=== PATIENT | male | born 1970 | race Caucasian/White ===

== ENCOUNTER 2017-01-06 17:01 | Inpatient (IN) | payer OTHER ==
[~2017-01-06] VITALS: Ht 175.3 cm; Wt 66.0 kg
[2017-01-06 17:32] VITALS: BP 112/73; PULSE 96; RESP 16; O2SAT 100
--- NOTE | 2017-01-06 18:44 | ED.REPORT ---
HPI-Psychiatric Illness Date of Service Jan 06, 2017 ED Provider: Aurora Reid DO Pt is a 46 year old male with a history of HTN who presents to the ED complaining of need for detox from heroin for the past 3 weeks. He c/o associated suicidal thoughts without plans onset 2 weeks ago and insomnia. He denies current hallucinations and homicidal thoughts. The pt reports that he has been at [facility] for 1 week, and that he plans on getting into a Suboxone clinic once he is discharged. He denies a history of suicidal attempts , mellisa, psychosis, and reports that he has not been admitted previously for mental health issues. Nursing Notes Stated Complaint: MENTAL EVAL Chief Complaint: Psychiatric Complaint Nursing Notes Reviewed: Yes Allergies: Coded Allergies: Sulfa (Sulfonamide Antibiotics) (Verified Allergy, Mild, Mild, 01/06/17) General Time Seen by MD: 18:43 Chief Complaint Other (Detox) Hx Obtained From: Patient Arrived By: Walk-in Onset Occurred: More than a week ago... 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 Physical Exam Initial Vital Signs Vital Signs (First) Date Time Temp Pulse Resp B/P Pulse Ox O2 Delivery O2 Flow Rate FiO2 01/06/17 17:32 37.1 96 16 112/73 100 01/06/17 19:28 Room Air Initial VS: Reviewed Head / Eyes: Atraumatic, Normocephalic Neck: Supple, Full range of motion Respiratory: Breath sounds normal, Clear to auscultation, No respiratory distress Cardiovascular: Regular rate & rhythm, Heart sounds normal, Intact distal pulses Skin: Warm, Dry, No cyanosis General/Constitutional: Awake, Alert, Cooperative Neurologic: Oriented X3, Speech NL, No motor deficits, No sensory deficits Psychiatric: Not suicidal Pt has not been sleeping and would like something to help with his sleep. He has no suicidal plans or history of suicidal attempts. Will give medications and consult with a mental health social worker. Upper Extremity / MS: Neurologic intact, Vascular intact Indurated swollen, painful left bicep muscle. Interpretation & Diagnostics LEFT UPPER EXTREMITY VENOUS ULTRASOUND: CONCLUSION: Negative for DVT. Hematoma within the distal biceps muscle. Additional hypoechoic focus within the distal biceps, most likely hemorrhage with abscess felt less likely but not excluded. Transmitted to the ED at 23:02 by [address] M[address]D [address] LEFT ARM: Infection cellulitis with edema in muscle belly. No accrete abscess formation yet. Looks like fluid collection. Discussed with David Morales M.D, at 02:24 Lab Results Interpretation Result Diagram: 01/06/17 2345 01/06/17 2345 Test 01/06/17 23:45 White Blood Count 14.6th/mm3 (3.8-10.1) Red Blood Count 4.95mil/mm3 (4.40-5.80) Hemoglobin 14.1g/dL (13.8-17.2) Hematocrit 41.3% (41.0-50.0) Mean Corpuscular Volume 83.4fL (81-100) Mean Corpuscular Hemoglobin 28.5pg (27.0-35.0) Mean Corpuscular Hemoglobin Concent 34.1% (32.0-37.0) Red Cell Distribution Width 16.2% (12.3-15.4) Platelet Count 422bil/L (150-400) Neutrophils (%) (Auto) 72.8% (40-74) Lymphocytes (%) (Auto) 16.1% (14-46) Monocytes (%) (Auto) 9.6% (4-12) Eosinophils (%) (Auto) 0.9% (0-5) Basophils (%) (Auto) 0.3% (0-3) Sodium Level 138mEq/L (134-144) Potassium Level 4.1mEq/L (3.5-5.2) Chloride Level 97mEq/L (97-108) Carbon Dioxide Level 25mmol/L (18-29) Blood Urea Nitrogen 14mg/dL (6-24) Creatinine 0.75mg/dL (0.76-1.27) Estimat Glomerular Filtration Rate 119mL/min (>59) Glucose Level 102mg/dL (60-99) Lactic Acid Level 1.3mmol/L (0.4-2.0) Calcium Level 9.3mg/dL (8.5-10.1) Total Bilirubin 0.2mg/dL (0.0-1.2) Aspartate Amino Transf (AST/SGOT) 17U/L (0-50) Alanine Aminotransferase (ALT/SGPT) 18U/L (0-44) Alkaline Phosphatase 89U/L (25-150) Total Creatine Kinase 48U/L (21-232) Total Protein 7.5g/dL (6.4-8.4) Albumin 3.8g/dL (3.4-5.0) Procedures ABSCESS DRAINAGE: Pt presented with an indurated, swollen, and painful left bicep muscle. Pt provided consent to have the abscess drained. Sterile gloves were worn during the procedure and sterile practices were observed. No complications. Pt provided consent to have the abscess drained a second time. Sterile gloves were worn during the procedure and sterile practices were observed. 14 gauge was used. No complications. Re-Eval/Medical Decision Med Decision/Clinical Course This is a very pleasant 46-year-old male who came in initially for mental health evaluation. He is at [facility] and he is detoxing from heroin. He last used injection drugs I believe about 10 days ago. He states that he is not sleeping he is feeling very anxious due to his withdrawal and at times is getting some suicidal thoughts. This is what prompted the ED visit. He was not actually suicidal he does want some help him relax. My mental health social worker evaluated him and he concurred. We gave him some Ativan and when he first presented his left bicep was a little bit erythematous but certainly not indurated. Over the next couple of hours and became indurated started give him some pain. He does shoot up in a serious we perform an ultrasound looking for an abscess or DVT. There appeared to be possibly an abscess but definitely some subcutaneous edema. We went ahead and performed a CT scan that shows evidence of edema and a little swelling in the muscle consistent with myositis. There is no discrete drainable fluid collection however seen on CT scan. Taking account that Mr. Blunt has a leukocytosis and a deep space infection with myositis and cellulitis I will admit him to the hospital. He has no signs of gangrene at this time or necrotizing fasciitis. He certainly has an infection that warrants broad-spectrum antibiotics and possible surgery and infectious disease consultation. Of note after given a dose of Ativan all his suicidal ideations resolved. He is able to sleep for several hours. At 2:28 AM I repeated neurologic exam. Is awake or oriented 4. He has no suicidal ideations. He has no homicidal ideations. He would like to be admitted medically. He is feeling much better. His recent remote memory are intact. His affect and judgment seem to be intact as well. Source of Hx: Old records Re-Evaluation/Progress #1: Time of Eval: 22:01 )( Re-Eval Psychiatric: No danger to self, No danger to others Re-Evaluation/Progress Note: Pt rechecked. Pt reported indurated swollen left bicep muscle, which was drained with the pt's consent. All questions were answered. Re-Evaluation/Progress #2: Time of Eval: 02:29 )( Re-Eval Psychiatric: No danger to self, No danger to others Re-Evaluation/Progress Note: Pt rechecked. Informed pt of plan for admission. Pt understands and agrees with plan for admission. All questions were answered. Consultation #1: Referral / Consult Name: David Morales MD Call Returned at: 02:23 Demand Equipment Repairer: Agrees with eval, Agrees with plan Note: Discussed CT findings with Radiologist. He does not think it is an abscess. Consultation #2: Referral / Consult Name: Nguyễn Rivers MD Consulted With: Hospitalist Call Returned at: 02:30 Demand Equipment Repairer: Will see patient, Agrees with eval, Agrees with plan, Accepts admit Counseled Regarding: Diagnosis, Lab results, Need for admission Discharge & Departure Impression: Primary Impression: Myositis Myositis type: infective Myositis location: upper extremity Laterality: left Qualified Code: M60.001 - Infective myositis, unspecified left arm Additional Impression: Cellulitis Site of cellulitis: extremity Site of cellulitis of extremity: upper extremity Laterality: left Qualified Code: L03.114 - Cellulitis of left upper limb Disposition: ADMITTED TO HOSPITAL Discharge Condition All VS Reviewed: Yes Condition: Stable Referrals: [facility] Scribe Attestation Portions of this note were transcribed by Raquel Duncan. I, Dr. Simon personally performed the history, physical exam and medical decision-making; I reviewed and confirmed the accuracy of the information in the transcribed note. Signed by: Huber Lemus, 01/06/17 and 19:50. copies to: [facility] Franklin Simon DO Jan 06, 2017 18:44 Raquel Gomez Jan 06, 2017 18:49
[2017-01-06 19:28] VITALS: BP 105/59; PULSE 85; RESP 20; O2SAT 96
[2017-01-06] MEDS ORDERED: LORazepam 1 mg Tablet PO ONE (20:25)
[2017-01-06 23:00] VITALS: BP 110/64; PULSE 86; RESP 20; O2SAT 98
[2017-01-07] VITALS (8 sets, daily range): BP systolic 109–159; BP diastolic 63–92; PULSE 67–89; RESP 16–18; O2SAT 96–100
[2017-01-07 00:03] LABS: BASOPHILS % (AUTO) 0.3 % (0-3); EOSINOPHILS % (AUTO) 0.9 % (0-5); MONOCYTES % (AUTO) 9.6 % (4-12); Mean Corpuscular Hemoglobin 28.5 pg (27.0-35.0); Mean Corpuscular Volume 83.4 fL (81-100); NEUTROPHILS % (AUTO) 72.8 % (40-74); Platelet Count 422 bil/L (150-400)
[2017-01-07] MEDS ORDERED: HYDROmorphone 0.5 mg/0.5 mL iSecure Syringe IVPUSH PRN (01:35)
[2017-01-07] MEDS ORDERED: Piperacillin-Tazo 3.375 Gm Inj 3.375 GM in Dextrose 5% Minibag Plus 50 ML IV ONE (01:35)
[2017-01-07] MEDS ORDERED: 0.9% Sodium Chloride 1,000 ML IV ONE (01:35)
[2017-01-07] MEDS ORDERED: Ondansetron 2 mg/mL 2 mL Inj IVPUSH PRN ×2 (03:40→04:20)
[2017-01-07] MEDS ORDERED: Alum-Mag Hydrox-Simeth 30 mL Suspension PO PRN ×2 (03:40→04:20)
[2017-01-07] MEDS ORDERED: Polyethylene Glycol (PEG) 17 Gm Powder PO PRN (04:20)
--- NOTE | 2017-01-07 04:29 | PCM.HPMED ---
Subjective Date of Service Jan 07, 2017 Primary Provider: Admitting Physician: Nguyễn Rivers MD Primary Care Physician: Other,Physician Attending Physician: Nguyễn Rivers MD Chief Complaint: nausea, vomiting. History of Present Illness: 46 year old male with a history of HTN presented to the ED requesting for detox from heroin for the past 3 weeks. He also c/o associated suicidal thoughts without plans onset 2 weeks ago and insomnia along with nausea and vomiting. He denies blood in vomiting. He denies current hallucinations and homicidal thoughts. He also states that he has been at [facility] for 1 week, and that he plans on getting into a Suboxone clinic once he is discharged. He denies a history of suicidal attempts, mellisa, psychosis, and reports that he has not been admitted previously for mental health issues. In ED, he was found to have left upper extremity swelling that was consistent with cellulitis. So he is admitted for intravenous antibiotics. Review of Systems: Positive as per noted in HPI, otherwise a complete 14-point review of system is negative. Allergies Coded Allergies: Sulfa (Sulfonamide Antibiotics) (Verified Allergy, Mild, Mild, 01/06/17) [facility] Social History Hx Alcohol Use: No Hx Substance Use: Yes (heroin use) Smoking Status: Current Every Day Smoker Exam Vital Signs Vital Sign - Last Date Time Temp Pulse Resp B/P Pulse Ox O2 Delivery O2 Flow Rate FiO2 01/07/17 03:59 36.8 88 18 120/68 98 Room Air Intake and Output 01/06/17 01/06/17 01/07/17 Cumulative From/Thru 15:00 23:00 07:00 01/06/17 17:32 - 01/07/17 02:56 Intake Total 1550 ml 1550 ml Balance 1550 ml 1550 ml Intake IV Total 1550 ml 1550 ml Exam General/Constitutional: Awake, Alert, Cooperative Head / Eyes: Atraumatic, Normocephalic Neck: Supple, Full range of motion Respiratory: Breath sounds normal, Clear to auscultation, No respiratory distress Cardiovascular: Regular rate & rhythm, Heart sounds normal, Intact distal pulses Upper Extremity / MS: Neurologic intact, Vascular intact Indurated swollen, painful left bicep muscle. Neurologic: Oriented X3, Speech NL, No motor deficits, No sensory deficits Psychiatric: Not suicidal Lab and Diagnostics Result Diagram: 01/06/17 5510 01/06/17 2345 X-Rays, CTs and MRIs LEFT UPPER EXTREMITY VENOUS ULTRASOUND: CONCLUSION: Negative for DVT. Hematoma within the distal biceps muscle. Additional hypoechoic focus within the distal biceps, most likely hemorrhage with abscess felt less likely but not excluded. Transmitted to the ED at 23:02 by [address] M[address]D [address] LEFT ARM: Infection cellulitis with edema in muscle belly. No accrete abscess formation yet. Looks like fluid collection. Assessment & Plan 46 year old male with h/o intravenous drug abuse found to have left upper extremity swelling consistent with cellulitis. Cellulitis - leukocytosis. - Will start on broad spectrum antibiotics as he is actively using intravenous drugs - Will start on vancomycin and zosyn - US negative for DVT. - CT is consistent with cellulitis - Blood cultures pending Heroin abuse - c/o insomnia and also very anxious. - received ativan. Feeling much better now. Diet: General DVT ppx: Heparin Pain Evaluation: Adequate Pain Control GI Prophylaxis: Proton Pump Inhibitor VTE Prophylaxis: Sub-Q Heparin (Unfractionated) Resuscitation Status: CPR: Attempt Resuscitation Nguyễn Rivers MD Jan 07, 2017 04:29
[2017-01-07 05:47] LABS: Mean Corpuscular Hemoglobin 28.2 pg (27.0-35.0); Mean Corpuscular Volume 84.2 fL (81-100)
--- NOTE | 2017-01-07 06:26 | NUR ---
admit pt arrived to [facility] room 1007 at 0400. he is alert and oriented. VSS and afebrile. he was able to ambulate from the gurney to the bed with no assistance. he complains of pain in his R arm where it was reported it took multiple attempts to get an IV in. pt given tylenol for his pain, which has been effective he has been sleeping. admit and med rec complete. pt has been oriented to room, call light and bed controls. care continues.
--- NOTE | 2017-01-07 06:42 | PCM.CONPHA ---
Subjective Date of Service: Jan 07, 2017 Requesting Provider: Nguyễn Rivers MD nausea, vomiting. History of Present Illness A/ - 46 y/o IVDU male required Vancomycin to empirically treat cellulitis - Afebrile, WBC: 14.6, blood cultures pending - In ED, patient received loading dose Vancomycin 1500mg @0300, Zosyn also initiated and to be continued - Wt: 66.1 kg, ht: 175 cm, BMI: 21.5 kg/m2, SCr: 0.75 mg/dL, estimated clearance (based on ABW) ~ 115 ml/min, Vd~46L, t1/2~7 hrs P/ - Give vancomycin 750mg iv q8h. Trough level ordered before 4th dose @0330 . This regimen would produce a trough of 15. Pharmacy will continue to follow and make necessary adjustment Thank you for consulting clinical pharmacy in the care of this patient Torin Fraga Reason for Pharmacy Consult: Vancomycin Dosing Objective Vital Signs Glo Fraga Jan 07, 2017 06:42 01/07/17 03:59 36.8 88 18 120/68 98 Room Air 01/07/17 03:58 36.8 88 18 116/70 98 Room Air 01/07/17 03:00 36.9 88 18 112/68 99 Room Air 01/06/17 23:00 36.7 86 20 110/64 98 Room Air 01/06/17 19:28 36.6 85 20 105/59 96 Room Air 01/06/17 17:32 37.1 96 16 112/73 100 Weight (Kilograms): 66.100 Height (Feet): 5 Height (Inches): 9.00 Test 01/06/17 23:45 01/07/17 05:00 Neutrophils (%) (Auto) 72.8% (40-74) Lymphocytes (%) (Auto) 16.1% (14-46) Monocytes (%) (Auto) 9.6% (4-12) Eosinophils (%) (Auto) 0.9% (0-5) Basophils (%) (Auto) 0.3% (0-3) Lactic Acid Level 1.3mmol/L (0.4-2.0) Total Creatine Kinase 48U/L (21-232) White Blood Count 13.4th/mm3 (3.8-10.1) Red Blood Count 4.44mil/mm3 (4.40-5.80) Hemoglobin 12.5g/dL (13.8-17.2) Hematocrit 37.4% (41.0-50.0) Mean Corpuscular Volume 84.2fL (81-100) Mean Corpuscular Hemoglobin 28.2pg (27.0-35.0) Mean Corpuscular Hemoglobin Concent 33.4% (32.0-37.0) Red Cell Distribution Width 16.1% (12.3-15.4) Platelet Count 324bil/L (150-400) Glo Fraga Jan 07, 2017 06:42
[2017-01-07] MEDS ORDERED: Piperacillin-Tazo 3.375 Gm Inj 3.375 GM in Dextrose 5% Minibag Plus 50 ML IV SCH ×4 (08:30)
[2017-01-07] MEDS ORDERED: Vancomycin Inj 500 MG in Dextrose 5% 100 ML IV SCH (08:30)
[2017-01-07] MEDS: Vancomycin Dose per Pharmacist XX SCH (08:30)
--- NOTE | 2017-01-07 08:47 | DRSVH ---
PROCEDURE: US VENOUS ARM DUPLEX UNILATERAL, LEFT INDICATIONS: left bicep pain and swelling TECHNIQUE: Real-time imaging, as well as color and pulse Doppler interrogation, was performed of the left upper extremity deep veins from the inferior neck to the antecubital fossa. COMPARISON: [facility], CT, CT UPPER EXTREMITY LT W CON, 01/07/2017, 1:56. FINDINGS: The internal jugular vein, visualized portions of the subclavian vein, axillary, and brach ial veins are free of intraluminal thrombus. Where physically possible, the veins are normally compr essible. Color and pulse Doppler demonstrate normal intraluminal flow, with expected phasicity and p ulsatility. Additional scanning of the cephalic and basilic veins of the superficial system demonstr ate normal compressibility, without thrombus. Edema present at the level of the biceps and there is a complex, heterogeneous focus present measuring roughly 3.7 x 1.0 x 1.5 cm. IMPRESSION: 1. No left upper extremity venous thrombus identified. 2. Complex, heterogeneous mass within the biceps which could represent hematoma but inflammatory or n eoplastic mass cannot be excluded and clinical correlation is recommended. No drainable fluid collec tion is seen. Dictated by: Mack Terrazas RRA Interpreted: Chayo Leary MD on 01/07/2017 at 8:38 Transcribed by: SAL on 01/07/2017 at 8:46 Approved by: Chayo Leary MD, PhD on 01/07/2017 at 9:46
[2017-01-07] MEDS: Heparin 5,000 Unit/mL Inj SUBQ SCH ×2 (09:14→17:14)
--- NOTE | 2017-01-07 10:15 | DRSVH ---
PROCEDURE: CT UPPER EXTREMITY LT W CON INDICATIONS: left bicep expanding mass and swelling. IV drug abuse. TECHNIQUE: After the administration of intravenous contrast, 3 mm axial sections acquired of the left upper arm, with coronal and sagittal reformats. For radiation dose reduction, the following was used: automat ed exposure control, adjustment of mA and/or kV according to patient size. COMPARISON: None. FINDINGS: Image quality: Excellent. Bones: No fracture or dislocation. No lytic or blastic lesions identified. No periosteal reaction elenita ntified. Soft tissues: There is a 2.9 x 2.0 x 2.8 cm poorly visualized hypoattenuating lesion in the left cherie ps musculature. No definite peripheral enhancement associated with the left bicep lesion. Left biceps region may represent inflammatory phlegmon/early abscess, or lesion is difficult to definitively umu racterize due to beam hardening artifact related to close apposition the patient's body. The left bic eps muscle appears diffusely enlarged and edematous. Inflammatory changes noted in the subcutaneous f at of the anterior medial left upper arm. IMPRESSION: Left upper arm edema likely related to infectious cellulitis/myositis given history of IV drug abuse. Small hypodensity in the left biceps muscle suspicious for inflammatory phlegmon/develop ing abscess. Dictated by: Chayo Leary MD, PhD on 01/07/2017 at 10:08 Approved by: Chayo Leary MD, PhD on 01/07/2017 at 10:13
[2017-01-07] MEDS ORDERED: cefTRIAXone Inj 2,000 MG in Dextrose 5% Minibag Plus 50 ML IV SCH (11:00)
[2017-01-07] MEDS: Vancomycin Inj 750 MG in 0.9% Sodium Chloride 250 ML IV SCH ×3 (12:00→20:17)
--- NOTE | 2017-01-07 14:39 | NUR ---
cellulitis unchanged, outlined area of erythema with marker. pt has been sleeping most of day, arouses easily, states when asked, that he does feel like he is still withdrawing some but not as much as he has been in the last week or so.
--- NOTE | 2017-01-07 15:51 | NUR ---
Social Work- Brief Note Data: EMR reviewed. Pt is a 46 year old male admitted 01/07/17 for cellulitis, myosistis per H&P. Pt's insurance is [employer]. Pt's PCP is listed as Other Physician. Per ER notes, pt comes from [facility] and pt presented to the ED due to reports of suicidal ideations without specific plan and command auditory hallucinations. Pt has no previous inpatient or outpatient psychiatric treatment nor does he have any previous suicide attempts. Pt reports fleeting suicidal thoughts in the ED secondary to his lack of sleep. 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 No BAL or UDS are obtained as pt came directly from [facility]. Diagnosis: F32.9 Unspecified depressive disorder SW met with pt at bedside regarding discharge plan, SW role explained. Pt alert and oriented x3. Pt reports to [employer] that he is considering leaving [facility] and moving to [place] to live with his mother and stepfather. T/C to Twyla Mendosa at [facility] [phone] regarding pt's return. Twyla is agreeable to pt returning and continuing treatment, [facility] staff would provide transportation at discharge. If pt returns to [facility] to continue treatment, Twyla requested that MD evaluate pt for a mood stabilizer to prevent similar mental health incidences from occurring and requiring admission. SW to inform MD of this. To return to [facility], pt would not be allowed to discharge on narcotics or any IV medications, including abx. If pt did not want to continue treatment, per Twyla, pt would have to return to obtain his belongings and then would be able to decide to check himself out of treatment. No transportation will be provided from [facility] to [place]. Pt reports that his mother Kimberley would be able to pick him up and transport him down to [place] and he would get connected with a suboxone clinic in [place]. MARIANNA stated that it is a big decision to decide to leave treatment and pt should discuss with his mother before assuming that she will assist in this. Pt agreeable. Pt is not currently endorsing any SI or HI. Pt denies any auditory hallucinations at this time. Pt pleasant during conversation. Pt is agreeable to MD discussing mood stabilizing medication. Assessment: Pt who is currently in treatment at [facility] Plan: SW to speak with MD about considering placing pt on mood stabilizer prior to discharge back to [facility]. Pt to discharge back to [facility] with [facility] to transport. Pt can then decide to check himself out of treatment and obtain his belongings at that time. SW will continue to follow. SLOANE Landa
[2017-01-07] MEDS: oxyCODONE-Acetamin 5-325 mg Tablet PO PRN (17:13)
--- NOTE | 2017-01-07 17:31 | CONS ---
[address] [address] CONSULTATION REPORT PATIENT: SHAYY MOORE : 1970 MR#: [id number] ADMIT: 01/07/2017 JOB ID: [id number] DATE OF SERVICE: 01/07/2017 INFECTIOUS DISEASE CONSULTATION: I thank Dr. Rivers for this timely consult. REASON FOR CONSULTATION: Left biceps infectious myositis. HISTORY OF PRESENT ILLNESS: The patient is a 46-year-old intramuscular narcotic user. He reports he last injected heroin into his left biceps area about three weeks ago. He presented to the ER yesterday complaining primarily of the pain in his left biceps which he said began about four days ago, or 17 days or so after his last injection. This was it associated with redness and tenderness along the biceps muscle, extending down towards the elbow. He denied any associated significant fevers, chills, sweats, cough, shortness of breath, nausea, or vomiting. He reports that he was having some suicidal ideation as well and he was primarily feeling suicidal about his continuing problems with injection drug use. PAST MEDICAL HISTORY: 1. History of severe right thigh abscess secondary to IM drug use last year. 2. Left upper extremity myositis secondary to injection drug use this year. 3. Hypertension. 4. Recent suicidal ideation. SOCIAL HISTORY: The patient does not drink alcohol. He is an everyday cigarette smoker and injects heroin by the IM route and in the past has injected heroin by the IV route. FAMILY HISTORY: Negative for tuberculosis in first-degree relatives. REVIEW OF SYSTEMS: Was limited. The patient states he has no significant headache, sore throat, cough, chest pain, shortness of breath, nausea, vomiting, diarrhea, or dysuria. PHYSICAL EXAMINATION: Reveals an afebrile gentleman, temperature 36.4, pulse 78, respiratory rate 16, blood pressure 109/73, saturating 99% on room air, and he looks to be in no acute distress. He does look, however, like he has a depressed mood and rather flat affect. He has some scattered skin lesions on his face, none of which appear especially infected. No temporal wasting. No head trauma. Mental status is clear, except for the diminished mood. Eyes: Without conjunctivitis or conjunctival hemorrhage. Oral cavity: No thrush or hairy leukoplakia. Neck is supple. Lungs are clear. Cardiac tones regular rate and rhythm. No murmurs, rubs, or gallops are appreciated. The abdomen is soft and nontender, without organomegaly. There is no Mcfarlane catheter and no suprapubic tenderness. Extremities are notable for a scar in the right lateral upper thigh at the site of his prior abscess, otherwise lower extremities are negative. No rash, edema, or synovitis. The left upper extremity is notable for about a 10 cm segment of his distal upper arm, which encompasses most of the biceps. This area is bulging, erythematous, and mildly tender, but without bullae. The patient has an almost full range of motion of his left upper extremity but cannot completely straighten the arm secondary to some pain in the distal biceps region. Neurologically the patient is intact. LABORATORIES: Include white count of 14,000 with no left shift. Platelets 324. Creatinine 0.63. LFTs normal. Procalcitonin 0.04. MRSA screen of the nares is pending. Blood cultures are pending and negative so far. IMAGING: Includes a CT scan of the upper arm that shows left upper extremity arm edema secondary to infectious cellulitis and myositis. There is a small hypodensity in the left biceps consistent with developing abscess. An ultrasound of that arm showed no clot. There was no drainable abscess seen on the ultrasound. IMPRESSION: This is a young man with a history of intramuscular heroin use who suffered last year a serious right thigh infection treated at an outside hospital secondary to IM injections there. He now has a new significant left upper extremity developing abscess and/or myositis. He is nontoxic and does not appear to have necrotizing fasciitis or myositis at this time, and likewise does not appear to have endocarditis or impending septic shock. RECOMMENDATIONS: 1. I agree with the blood cultures and nasal MRSA swab. 2. Will check HIV and hepatitis C. 3. We will add a CPK to his current labs. 4. Should his arm worsen, I think we would need to proceed with an MRI scan and also an orthopedics or general surgery consult for drainage. 5. ASO titer will be checked and added to today's labs. 6. We will continue to closely follow this patient with you over the next day or so. 7. I agree with the current antibiotics which include ceftriaxone and vancomycin while we await additional cultures. Thank you very much.
[2017-01-08 00:56] VITALS: BP 120/78; PULSE 92; RESP 20; O2SAT 98
--- NOTE | 2017-01-08 00:58 | NUR ---
IV/ Vanco At beginning of shift patient did not have an IV access. Per report, nurse states that IV site keeps infiltrating with vanco administration. Patient is a very difficult IV start, and ultra sound has been needed. IV therapy contacted and placed new IV in the right hand around 190. At 1999, IV vanco was to be administered and IV line had already gone bad and was occluded. Night hospitalist notified, and informed of situation. He ordered for IV vanco not to be administered this evening due to inability to maintain IV access, and to reevaluate in the morning. TO order written, and pharmacy also notified of this. IV in right hand DC'd. Will share this with am nurse. Will continue to monitor, and continue Q1 hour checks. Addendum: 01/08/17 at 0125 by JARRETT GARCIA RN Pharmacist states that they will contact hospitalist to see if PO abx is appropriate for this evening. No new orders at this time.
[2017-01-08] MEDS: Heparin 5,000 Unit/mL Inj SUBQ SCH ×3 (01:08→17:51)
[2017-01-08] MEDS: oxyCODONE-Acetamin 5-325 mg Tablet PO PRN ×3 (01:12→17:58)
[2017-01-08] MEDS ORDERED: Vancomycin Serum Trough XX ONE (03:30)
[2017-01-08] MEDS: Vancomycin Inj 750 MG in 0.9% Sodium Chloride 250 ML IV SCH (04:00)
[2017-01-08 05:33] LABS: BASOPHILS % (AUTO) 0.5 % (0-3); EOSINOPHILS % (AUTO) 1.6 % (0-5); MONOCYTES % (AUTO) 8.5 % (4-12); Mean Corpuscular Hemoglobin 28.5 pg (27.0-35.0); Mean Corpuscular Volume 84.1 fL (81-100); NEUTROPHILS % (AUTO) 69.8 % (40-74); Platelet Count 342 bil/L (150-400)
[2017-01-08 05:54] LABS: Magnesium 2.1 mg/dL (1.6-2.6); Phosphorus 3.8 mg/dL (2.5-4.9)
[2017-01-08 06:03] VITALS: BP 127/79; PULSE 79; RESP 16; O2SAT 99
[2017-01-08] MEDS: Vancomycin Dose per Pharmacist XX SCH (08:30)
[2017-01-08 09:00] VITALS: BP 135/69; PULSE 91; RESP 18; O2SAT 98
[2017-01-08] MEDS ORDERED: Vancomycin Inj 1,500 MG in 0.9% Sodium Chloride 500 ML IV ONE (09:30)
--- NOTE | 2017-01-08 10:29 | PCM.PNMED ---
Subjective Date of Service Jan 08, 2017 Subjective pt remained afebrile, no s/s of opioid withdrawal less pain, ID consulted, Exam Vital Signs Vital Sign - Last Date Time Temp Pulse Resp B/P Pulse Ox O2 Delivery O2 Flow Rate FiO2 01/08/17 09:00 36.9 91 18 135/69 98 Room Air Intake and Output 01/07/17 01/07/17 01/08/17 Cumulative From/Thru 15:00 23:00 07:00 01/06/17 17:32 - 01/08/17 06:54 Intake Total 3075 ml 436 ml 5061 ml Output Total 2250 ml 1900 ml 4150 ml Balance 825 ml -1464 ml 911 ml Intake Oral 1220 ml 436 ml 1656 ml IV Total 1855 ml 3405 ml Output Urine Total 2250 ml 1900 ml 4150 ml # Bowel Movements 0 0 Exam NAD, comfortably laying down on the bed no JVD, MMM, no LAD RRR, nl s1, s2 no mrg CTAB, no w,c S,ND,NT,normoactive BS+ warm, no edema, pulses 2/2 Left biceps swollen, hard, tender, mild erythema, no fluctuance IVs and Medications Medications Reviewed: Medications were reviewed in detail Lab and Diagnostics Result Diagram: 01/08/17 0504 01/08/17 0504 X-Rays, CTs and MRIs LEFT UPPER EXTREMITY VENOUS ULTRASOUND: CONCLUSION: Negative for DVT. Hematoma within the distal biceps muscle. Additional hypoechoic focus within the distal biceps, most likely hemorrhage with abscess felt less likely but not excluded. Transmitted to the ED at 23:02 by David Morales M.D CT LEFT ARM: Infection cellulitis with edema in muscle belly. No accrete abscess formation yet. Looks like fluid collection. Assessment & Plan 46 year old male with h/o intravenous drug abuse found to have left upper extremity swelling consistent with cellulitis. acute, active cellultis/myositis on Left upper arm, in the setting of IV/IM heroin use, POA, CT/US showed no fluid but inflammatory phlegmon/developing abscess. -started on vancomycin and zosyn, currently vancomycin and Rocephin, appreciate ID input -trends fever curve, wbc, PCT -pain control with tramadol 100 tid starting today, percocet prn, chronic, stable, Heroin abuse, no signs of withdrawals, will try to avoid opioid, ordered CDI assessment Diet: General DVT ppx: Heparin dispo: likely through the weekends ADDENDUM> was consulted for possible surgical intervention. Please follow up tomorrow, keep NPO after MN in case. GI Prophylaxis: Proton Pump Inhibitor VTE Prophylaxis: Sub-Q Heparin (Unfractionated) VTE Mechanical Devices: Intermittant Pneumatic CD Resuscitation Status: CPR: Attempt Resuscitation Time spent 35min Michelle Paul MD Jan 08, 2017 10:29
[2017-01-08 14:48] VITALS: BP 100/60; PULSE 96; RESP 16; O2SAT 99
--- NOTE | 2017-01-08 15:19 | PROG NOTE ---
[address] [address] PROGRESS NOTE PATIENT: SHAYY MOORE : 1970 MR#: [id number] ADMIT: 01/07/2017 JOB ID: [id number] INFECTIOUS DISEASE FOLLOWUP: DATE: 01/08/2017 REASON FOR FOLLOWUP: Left biceps area abscess secondary to injection drug use. INTERVAL HISTORY: The patient has had no fevers, chills, or sweats overnight. No sore throat or chest pain. No nausea, vomiting, diarrhea. He has noticed however that if anything the range of motion of his left arm is decreased as he can no longer get it beyond about 100 degrees in extension and he reports increasing swelling and perhaps some increased pain even in the region. PHYSICAL EXAMINATION: Reveals an afebrile gentleman, temperature 36.9, pulse 96, respiratory rate 16, blood pressure 100/60, saturating 97% on room air. He is in no distress whatsoever. No skin rashes noted. Oral cavity benign. Lungs clear. Cardiac tones without murmur. Abdomen benign. The left biceps area though was increased in size. It is more erythematous, more swollen and slightly more tender. His range of motion is much worse in terms of extending his arm at the elbow, as he really cannot get up much beyond the 90 degree angle in terms of straightening out his left arm. No drainage or bullae are noted. LABORATORIES: Include white count 12,700, normal diff, creatinine 0.65. Serologies are pending. MRSA screen of the nare is positive. Blood cultures negative. IMAGING: No new imaging is noted beyond yesterday's CT scan which showed possible myositis. IMPRESSION: I think the patient's arm is worsening in spite of vancomycin and ceftriaxone. We have a clue as to the etiology in that his nose has MRSA, but certainly does not prove that is what is going on in his arm as this could be polymicrobial from injection. RECOMMENDATIONS: 1. Will switch the antibiotics now from vanc which is being given every 8 hours through a peripheral IV which is very difficult, to daptomycin and ertapenem for broader coverage. 2. Mupirocin will be added to the nares. 3. I would consult either General Surgery or Orthopedics to see whether additional imaging or even just a drainage of that arm is indicated at this point.
[2017-01-08] MEDS: Ertapenem Inj 1,000 MG in 0.9% Sodium Chloride 50 ML IV SCH (16:33)
[2017-01-08] MEDS ORDERED: Vancomycin Inj 750 MG in 0.9% Sodium Chloride 250 ML IV SCH (17:00)
[2017-01-08] MEDS: DAPTOmycin Inj 400 MG in 0.9% Sodium Chloride 50 ML IV SCH (17:49)
--- NOTE | 2017-01-08 19:17 | NUR ---
IV access/Pain IV access placed by IV therapy in right hand with 22gauge. Vancomycin restarted and Pharmacy updated SEP. Pt pain 4/10 in left arm. Pt administered PRN Percocet with relief. Pt slept majority of shift, using call light appropriately as needed.
[2017-01-08 20:27] VITALS: BP 120/76; PULSE 90; RESP 18; O2SAT 98
[2017-01-08] MEDS: Mupirocin 2% 22 Gm Ointment NASAL SCH (21:35)
[2017-01-09] VITALS (10 sets, daily range): BP systolic 107–131; BP diastolic 65–88; PULSE 70–89; RESP 10–21; O2SAT 96–100
[2017-01-09] MEDS: Heparin 5,000 Unit/mL Inj SUBQ SCH ×4 (00:20→23:45)
--- NOTE | 2017-01-09 01:50 | NUR ---
Activity On initial assessment, patient rated pain 6/10 on pain scale. Tramadol 100 mg PO administered. Antibiotic cream applied to left bicep area. Patient had no questions . VSS. Call light within reach. Care continues
--- NOTE | 2017-01-09 05:38 | CONS ---
[address] [address] CONSULTATION REPORT PATIENT: SHAYY MOORE : 1970 MR#: [id number] ADMIT: 01/07/2017 JOB ID: [id number] DATE OF SERVICE: 01/08/2017 CHIEF COMPLAINT: A 46-year-old male with possible left arm abscess. Seen in consultation at the request of Michelle Paul MD. HISTORY OF PRESENT ILLNESS: The patient is a 46-year-old gentleman with a problem with IV heroin abuse. He reports injecting heroin into his left biceps area about three weeks ago. He presented to the emergency department on January 06, 2017, with pain of the left arm, which began four days prior. Had some redness and tenderness extending towards the elbow. He has not had any fevers, chills. OTHER MEDICAL PROBLEMS: Hypertension. PRIOR OPERATIONS: 1. Right thigh abscess. 2. Right arm abscess. SOCIAL HISTORY: He does smoke, and he does inject heroin. He does not drink alcohol. REVIEW OF SYSTEMS: A 10-point review of systems negative, other than the pertinent positives noted in the history of present illness and other medical problems. INVESTIGATIONS: White blood cell count 12.7, down from 14.6; hemoglobin 12.9, platelet count 342. Creatinine 0.65, glucose 102. Liver function studies normal. Venous duplex, January 06, 2017, showed no evidence of venous thrombosis. Complex heterogenous focus present, measuring approximately 3.7 x 1.0 x 1.[address], on January 07, 2017, showed a 2.9 x 2.0 x 2.8 cm, poorly visualized hypoattenuating lesion in the left biceps musculature, suggestive of a phlegmon or abscess, and significant edema surrounding it. PHYSICAL EXAMINATION: A 46-year-old male in mild distress. BMI 21.5. Temperature 37.2, pulse 90, blood pressure 120/76, saturating 98% on room air. Eyes: Normal pupils, conjunctivae. Ears, nose, and throat: Normal in external appearance. Respiratory: Normal effort, clear to auscultation. Cardiovascular: Regular rate and rhythm. Gastrointestinal: Soft. Skin: Left arm, anterior aspect, with erythema, induration, and some suggestion of fluctuance to the inferior aspect. Erythema extent was marked, and it does not seem to be extending. He has palpable distal pulses. Neurologic: No gross deficits. ASSESSMENT AND PLAN: Evolving left arm abscess. He is not on an empty stomach right now, so we are going to continue his antibiotics, and make him n.p.o. at night for Dr. Gil to plan incision and drainage in the operating room on Wednesday. Again discussed the plan with the patient, and he is comfortable with that.
[2017-01-09 06:10] LABS: Hepatitis A Antibody IgM Negative (Negative); Hepatitis B Core Antibody IgM Negative (Negative)
[2017-01-09 06:40] LABS: BASOPHILS % (AUTO) 0.4 % (0-3); MONOCYTES % (AUTO) 8.5 % (4-12); Mean Corpuscular Hemoglobin 28.3 pg (27.0-35.0); Mean Corpuscular Volume 84.4 fL (81-100); NEUTROPHILS % (AUTO) 75.2 % (40-74); Platelet Count 335 bil/L (150-400)
[2017-01-09 07:15] LABS: Phosphorus 4.1 mg/dL (2.5-4.9)
[2017-01-09] MEDS: oxyCODONE-Acetamin 5-325 mg Tablet PO PRN ×3 (08:24→23:46)
[2017-01-09] MEDS ORDERED: Vancomycin Serum Trough XX ONE (08:30)
--- NOTE | 2017-01-09 09:39 | PCM.HPANE ---
Patient Data Date of Service: Jan 09, 2017 Surgeon Admitting Provider:Michelle Paul MD Attending Provider:Michelle Paul MD Primary Care Physician:Other,Physician Other Provider:Sylvester Miller Reason for Visit Cellulitis, Myosistis Ht/WT & BMI Height (Centimeters): 175 Weight (Kilograms): 66 Body Mass Index 21.58 Allergies Coded Allergies: Sulfa (Sulfonamide Antibiotics) (Verified Allergy, Mild, Mild, 01/06/17) Past Anesthesia History Anesthesia History: Denies:: Abnormal Airway, Anesthesia Reactions Diabetes History Hx Diabetes?: No MRSA MRSA: Yes Medications Hypertension Medication: No Home Meds Incl Beta Tammy: No No Active Prescriptions or Reported Meds History History of ENT Problems?: No HEENT History: Denies:: Abnormal Airway TMJ Denture Type: Full- Upper Full- Lower Teeth Condition: No Teeth Hx of Heart Problems?: Yes Cardiovascular History: Positive for:: Hypertension Denies:: Congestive Heart Failure Hx of Respiratory Problem?: No Respiratory History: Denies:: Tuberculosis Hx Neurologic Problems?: No Hx of GI Problems?: No Hx of Problems?: No Male Hx: Denies:: Prostate Problems Scrotal Mass Testicular Surgery Hx Musculoskeletal Problems?: No Musculoskeletal History: Denies:: Back Injury Joint Replacement Musculoskeletal Trauma Hx of Psycho/Social Problems?: Yes Psycho Social History: Positive for:: Anxiety Hx Depression Denies:: Bipolar Disorder Suicide Attempt Hx Surgeries?: Yes (knee surgery) Hx Any Other Health Problems?: Yes Other History: Positive for:: Hospitalization (MRSA in thigh) History Blood Transfusions: Positive for:: Accept Blood Products? Denies:: Blood Transfuse Reaction Blood Transfusions Hx Diabetes: No Hx Alcohol Use: YesAlcoholic Drinks Per Day: quit 10 years agoHx Substance Use : Yes (heroine last use 2 weeks ago) Smoking Status: Current Every Day Smoker Have You Smoked inLast 12 mo: NoApprox How Many Cigarettes/day: 10 Stop/Bang Treated for Sleep Apnea?: No Do You Have a CPAP Machine?: No S-Snoring: Do You Snore Loudly: No T-Tired: feel tired, fatigued: No O-Obsered: Observed not breath: No P-Blood Pressure: treated: Yes B- Body Mass Index > 35 kg/m2: No N- Neck Large Circumference: No G- Gender Male: Yes SAVAGE Total Score: 2 SAVAGE Risk Assessment: Low Risk, <3 Yes Risk Assessment Category Category 1A: Patient has history of documented sleep apnea, and HAS NOT received any narcotic, sedative or anesthesia administration during this stay. Category 1B: Patient has history of documented sleep apnea, and HAS received any narcotic , sedative or anesthesia administration during this stay Category 2: Patient has SUSPECTED Obstructive Sleep Apnea, and HAS received any narcotic , sedative or anesthesia administration during this stay. Category 3: Patient has SUSPECTED Obstructive Sleep Apnea and HAS NOT received narcotic, sedative or anesthesia administration during this stay. Category 4: Outpatient in Procedural Areas with known sleep apnea or who screen positive for High Risk via the STOP/BANG questionnaire. Exam Exam Vital Signs Vital Signs Date Time Temp Pulse Resp B/P Pulse Ox O2 Delivery O2 Flow Rate FiO2 01/09/17 09:35 37.8 80 17 112/76 96 Room Air 01/09/17 05:50 36.9 89 18 121/73 97 Room Air General Appearance: Alert, Oriented X3, Cooperative, No Acute Distress HEENT/AIRWAY: MP 2, Neck Movement (from), Mouth Opening (3 fb, TMD 3 fb) Lungs: Clear to Auscultation, Normal Air Movement Heart: Exam Unremarkable, Regular Rate/Rhythm, No Murmurs/Rubs/Gallops Meds/Labs/Diagnostics Admission Meds Current Medications Daptomycin 400 mg/ Sodium Chloride 50 ml @ 100 mls/hr Q24H IV Last administered on 01/08/17 17:49; Start 01/08/17 at 15:30 Ertapenem/Sodium Chloride (INVanz Inj/ Normal Saline) 50 ml @ 100 mls/hr Q24H IV Last administered on 01/08/17 16:33; Start 01/08/17 at 15:00 Mupirocin (Bactroban 2% Ointment) 1 applic BID NASAL Last administered on 21:35; Start 01/08/17 at 20:30 Labs Test 01/06/17 23:45 01/07/17 05:00 01/08/17 05:04 01/09/17 05:13 Lactic Acid Level 1.3mmol/L (0.4-2.0) Total Creatine Kinase 35U/L (21-232) Procalcitonin 0.04ng/mL (0.00-0.08) Hepatitis A IgM Antibody Negative (Negative) Hepatitis B Surface Antigen Negative (Negative) Hepatitis B Core IgM Antibody Negative (Negative) Hepatitis C Antibody <0.1s/co ratio (0.0-0.9) Hepatitis C Comment Comment (.) HIV (1&2) Ag and Ab, 4th Generation Non reactive (Non Reactive) Streptozyme 32.0IU/mL (0.0-200.0) White Blood Count 13.5th/mm3 (3.8-10.1) Red Blood Count 4.48mil/mm3 (4.40-5.80) Hemoglobin 12.7g/dL (13.8-17.2) Hematocrit 37.8% (41.0-50.0) Mean Corpuscular Volume 84.4fL (81-100) Mean Corpuscular Hemoglobin 28.3pg (27.0-35.0) Mean Corpuscular Hemoglobin Concent 33.6% (32.0-37.0) Red Cell Distribution Width 16.5% (12.3-15.4) Platelet Count 335bil/L (150-400) Neutrophils (%) (Auto) 75.2% (40-74) Lymphocytes (%) (Auto) 14.5% (14-46) Monocytes (%) (Auto) 8.5% (4-12) Eosinophils (%) (Auto) 1.0% (0-5) Basophils (%) (Auto) 0.4% (0-3) Sodium Level 133mEq/L (134-144) Potassium Level 4.4mEq/L (3.5-5.2) Chloride Level 95mEq/L (97-108) Carbon Dioxide Level 21mmol/L (18-29) Blood Urea Nitrogen 11mg/dL (6-24) Creatinine 0.54mg/dL (0.76-1.27) Estimat Glomerular Filtration Rate 173mL/min (>59) Glucose Level 88mg/dL (60-99) Calcium Level 9.6mg/dL (8.5-10.1) Phosphorus Level 4.1mg/dL (2.5-4.9) Magnesium Level 2.0mg/dL (1.6-2.6) Total Bilirubin 0.3mg/dL (0.0-1.2) Aspartate Amino Transf (AST/SGOT) 45U/L (0-50) Alanine Aminotransferase (ALT/SGPT) 68U/L (0-44) Alkaline Phosphatase 86U/L (25-150) Total Protein 7.0g/dL (6.4-8.4) Albumin 3.0g/dL (3.4-5.0) Plan Impression Patient chart reviewed, patient interviewed and anesthestic plan with risks, benefits, and alternatives discussed, and informed consent obtained. NPO per Anesth. Guidelines: Yes ASA Physical Status: ASA2 Mod Systemic Disease Anesthetic Plan: GA Bene/Risks/Altern/Consents: Yes HP Complete Prior to Induction: Yes Senthil Devine MD Jan 09, 2017 09:39
[2017-01-09] MEDS: Mupirocin 2% 22 Gm Ointment NASAL SCH ×2 (09:42→20:55)
--- NOTE | 2017-01-09 09:45 | NUR ---
Pre-Op Pt c/o R arm pain, rating at 6/10. PRN Percocet effective for this. Pt up ad liu in room. Pt being taken to OR now.
[2017-01-09] MEDS ORDERED: Lidocaine PF 1% 30 mL Inj ONE (09:50)
[2017-01-09] MEDS ORDERED: fentaNYL-PF 50 mCg/mL 2 mL Inj ONE (09:50)
[2017-01-09] MEDS ORDERED: Propofol 10,000 mCg/mL 20 mL Inj ONE (09:50)
[2017-01-09] MEDS ORDERED: Ondansetron 2 mg/mL 2 mL Inj ONE (09:50)
[2017-01-09] MEDS ORDERED: Lactated Ringer's 1,000 ML IV ONE (10:08)
[2017-01-09] MEDS ORDERED: Lactated Ringer's 500 ML IV PRN (10:23)
[2017-01-09] MEDS ORDERED: Lactated Ringer's 1,000 ML IV SCH (10:23)
[2017-01-09] MEDS ORDERED: Atropine 0.4 mg/mL Inj IVPUSH PRN (10:25)
[2017-01-09] MEDS ORDERED: Albuterol 2.5 mg/3 mL Inhalation Solution NEB PRN (10:25)
[2017-01-09] MEDS ORDERED: Phenylephrine 10,000 mCg/mL Inj IVPUSH PRN (10:25)
[2017-01-09] MEDS ORDERED: Ondansetron 2 mg/mL 2 mL Inj IVPUSH PRN (10:25)
[2017-01-09] MEDS ORDERED: Labetalol 5 mg/mL 4 mL Inj IV PRN (10:25)
[2017-01-09] MEDS ORDERED: EPHEDrine Sulfate 50 mg/mL Inj IVPUSH PRN (10:25)
[2017-01-09] MEDS ORDERED: Dexamethasone 4 mg/mL Inj IVPUSH PRN (10:25)
[2017-01-09] MEDS ORDERED: fentaNYL-PF 50 mCg/mL 2 mL Inj IVPUSH PRN (10:25)
[2017-01-09] MEDS ORDERED: MetoCLOpramide 5 mg/mL 2 mL Inj IVPUSH PRN (10:25)
[2017-01-09] MEDS ORDERED: HYDROmorphone 1 mg/mL Inj IVPUSH PRN (10:25)
[2017-01-09] MEDS ORDERED: Bupivacaine-MPF 0.25%/EPI 30 mL Inj INJ ONE (10:35)
--- NOTE | 2017-01-09 11:25 | PROG NOTE ---
[address] [address] PROGRESS NOTE PATIENT: SHAYY MOORE : 1970 MR#: [id number] ADMIT: 01/07/2017 JOB ID: [id number] DATE: 01/09/2017 SUBJECTIVE: This is a 46-year-old man who presented to the hospital three days ago after injecting heroin into his left biceps about three weeks ago. He has had cellulitis in that area with progressing increase in fluctuance and induration. He was evaluated by my partner last night who agreed that he likely has abscess. OBJECTIVE: Vital signs are stable. There is fluctuance and erythema of the left biceps. ASSESSMENT: A 46-year-old man with left biceps abscess after injection heroin use. PLAN: Incision and drainage today in the operating room. The patient was consented to the risks and benefits and he elects to proceed.
--- NOTE | 2017-01-09 12:05 | PCM.ANEP1 ---
Post Anesthesia PACU Phase 1 Assessment Date of Service: Jan 09, 2017 Vital Signs Vital Signs Date Time Temp Pulse Resp B/P Pulse Ox O2 Delivery O2 Flow Rate FiO2 01/09/17 11:26 36.8 73 10 121/82 100 Nasal Cannula 2 01/09/17 11:15 37.0 73 10 126/88 100 Nasal Cannula 2 01/09/17 11:10 74 10 131/76 97 Nasal Cannula 3 01/09/17 11:05 75 10 124/77 100 Nasal Cannula 3 01/09/17 11:00 70 21 115/74 96 Nasal Cannula 3 01/09/17 10:57 36.4 113/71 01/09/17 09:35 37.8 80 17 112/76 96 Room Air 01/09/17 05:50 36.9 89 18 121/73 97 Room Air Anesthetic Administered: GA Level of Alertness: Awake, talking SRINIVASAN's with Equal Strength: Yes Pain: Yes Pain Scale Score: 6 Nausea or Vomiting: No CV Function & Hydration Stable: Yes Airway Device: none Oxygen Delivery: Room Air Lungs: Clear to Auscultation, Normal Air Movement Dermatome Level: Full Sensation PACU Phase 2 Assessment Complications: No Follow up Care: No Patient Instructions Provided: N/A Senthil Devine MD Jan 09, 2017 12:05
--- NOTE | 2017-01-09 13:06 | PROG NOTE ---
[address] [address] PROGRESS NOTE PATIENT: SHAYY MOORE : 1970 MR#: [id number] ADMIT: 01/07/2017 JOB ID: [id number] DATE: 01/09/2017 INFECTIOUS DISEASE FOLLOWUP NOTE: REASON FOR FOLLOWUP: Left biceps soft tissue infection in a parenteral drug user. INTERVAL HISTORY: Overnight the patient noticed his left biceps started to swell more and more, and was more and more painful. Recall that yesterday when I saw him it also seemed to me that his arm had been steadily worsening. He was evaluated by surgery last night and the plan was to take him to the operating room today. He has just returned from the operating room and said he is doing quite well. He has minimal postop pain. No fevers, no chills. No cough. No nausea or vomiting. He is looking forward to lunch. PHYSICAL EXAMINATION: Reveals a comfortable gentleman. Temp 36.8, pulse 73, respiratory rate 10, blood pressure 121/82. He is saturating well on 2 L. Oral cavity negative. Lungs clear. Abdomen benign. The left arm is wrapped in a postop dressing and he just returned from the OR minutes ago. LABORATORIES: Include a white count which was actually going up this morning prior to surgery at 13,500. He also still had a bit of a left shift with 76% polys. Creatinine this morning is 0.54. ALT 68, which was also increasing. Albumin 3.0. HIV is negative. Streptozyme negative. Hep C is negative and hepatitis B surface antigen negative. Micro studies include negative blood cultures. A MRSA screen of the nares was initially reported as positive but it turns out it is one of these cassette variant strains and it is actually negative. IMPRESSION: This is a gentleman who is a parenteral narcotic user. He presents with rapidly progressive left biceps area cellulitis with myositis and eventual development of an abscess. He just returned from the operating room where an incision and drainage was done by Dr. Gil. It is unclear whether or not he has MRSA, but his nasal screen is actually negative. At this point I think I would maintain him on the very broad coverage which includes daptomycin and ertapenem while we wait for some culture data. This is certainly a scary infection in terms of its rapid progression but it now looks as if, with drainage, the patient is already improving. RECOMMENDATIONS: 1. Continue with our current antibiotics daptomycin and ertapenem. These were chosen partly just to preserve his tenuous peripheral IV. 2. Will await the final culture reports and operative report from Dr. Gil before we decide on the final outpatient antibiotic regimen but no PICC line as we will either use dalbavancin or oral antibiotics in this patient. Thank you very much.
--- NOTE | 2017-01-09 13:48 | PCM.PNMED ---
Subjective Date of Service Jan 09, 2017 Subjective He is seen today to follow-up his left arm abscess. He is a heroin user who injects into the muscles. This is the second time he has had to have surgery for heroin related abscess. Exam Vital Signs Vital Sign - Last Date Time Temp Pulse Resp B/P Pulse Ox O2 Delivery O2 Flow Rate FiO2 01/09/17 09:35 37.8 80 17 112/76 96 Room Air Intake and Output 01/08/17 01/08/17 01/09/17 Cumulative From/Thru 15:00 23:00 07:00 01/06/17 17:32 - 01/09/17 06:35 Intake Total 2048 ml 713 ml 7822 ml Output Total 1200 ml 1250 ml 6600 ml Balance 848 ml -537 ml 1222 ml Intake Oral 1408 ml 600 ml 3664 ml IV Total 640 ml 113 ml 4158 ml Output Urine Total 1200 ml 1250 ml 6600 ml # Bowel Movements 1 1 Exam He is alert and oriented 3. No apparent distress Heart is regular rate and rhythm no murmur Lungs are clear to auscultation bilaterally Extremities have no ankle edema. There is a significant amount of swelling in the left biceps with a tense and tender and warm area there. IVs and Medications Medications Reviewed: Medications were reviewed in detail Lab and Diagnostics Result Diagram: 01/09/1751201/09/17 05 X-Rays, CTs and MRIs LEFT UPPER EXTREMITY VENOUS ULTRASOUND: CONCLUSION: Negative for DVT. Hematoma within the distal biceps muscle. Additional hypoechoic focus within the distal biceps, most likely hemorrhage with abscess felt less likely but not excluded. Transmitted to the ED at 23:02 by David Morales M.D CT LEFT ARM: Infection cellulitis with edema in muscle belly. No accrete abscess formation yet. Looks like fluid collection. Assessment & Plan 46 year old male with h/o intravenous drug abuse found to have left upper extremity swelling consistent with muscle abscess acute, active cellultis/myositis on Left upper arm, in the setting of IV/IM heroin use, POA, CT/US showed no fluid but inflammatory phlegmon/developing abscess. -started on vancomycin and zosyn, currently vancomycin and Rocephin, appreciate ID input -trends fever curve, wbc, PCT -pain control with tramadol 100 tid starting today, percocet prn, chronic, stable, Heroin abuse, no signs of withdrawals, will try to avoid opioid, ordered CDI assessment Diet: General DVT ppx: Heparin dispo: likely through the weekends Gen. surgery reports a successful incision and drainage today. GI Prophylaxis: Proton Pump Inhibitor VTE Prophylaxis: Sub-Q Heparin (Unfractionated) VTE Mechanical Devices: Intermittant Pneumatic CD Resuscitation Status: CPR: Attempt Resuscitation Gus Maldonado MD Jan 09, 2017 10:02
--- NOTE | 2017-01-09 13:56 | OP ---
[address] [address] OPERATIVE REPORT PATIENT: SHAYY MOORE : 1970 MR#: [id number] ADMIT: 01/07/2017 JOB ID: [id number] DATE OF SURGERY: 01/09/2017 PREOPERATIVE DIAGNOSIS(ES): Left biceps abscess. POSTOPERATIVE DIAGNOSIS(ES): Left biceps abscess. PROCEDURE PERFORMED: Incision and drainage of deep left biceps abscess. SURGEON: Beatriz Gil MD [employer]: Cuauhtemoc Colon MD, R3 HISTORY OF PRESENT ILLNESS: This is a 46-year-old man with a history of IV injection drug use, also with a history of previous incision and drainage of abscesses, who presented with a left arm cellulitis. This was treated with antibiotics for several days and coalesced into an abscess. Therefore, he was consented for incision and drainage. FINDINGS: Abscess cavity deep within the muscle of the biceps 3 cm in length by 2 cm in width. Purulent fluid was sent for cultures. DESCRIPTION OF PROCEDURE: The patient was brought to the operating room and placed in supine position. General anesthesia was induced. A warming blanket and SCDs were placed. The operative field was prepped and draped in sterile fashion. Antibiotics had been previously infused. A preprocedural pause was performed to confirm the correct patient, procedure, and site. A sterile needle was used to aspirate the area of greatest fluctuance in the left biceps given that there was not a clear site of the abscess. Purulent fluid was immediately encountered deep within the muscle. This was sent for culture. A longitudinal incision was made overlying this, which had to be up-sized to 7 cm in length in order to adequately drain the abscess cavity, which as mentioned above was approximately 3 cm in length by 2 cm in width. Mechanical debridement was performed. Irrigation was performed. A counter incision was made medial to the original incision to provide further drainage given the depth of the wound and the amount of overlying muscle and subcutaneous tissue. A half-inch [place] drain was threaded through the original incision and the counter incision and sewn to itself for additional drainage. Hemostasis was obtained. A moist Kerlix was gently packed into the wound. An ABD was placed. The patient was awakened from general anesthesia and taken to the postoperative care unit in good condition. SPECIMENS: Purulent fluid for culture. ESTIMATED BLOOD LOSS: 5 mL. COMPLICATIONS: None. MTDD
[2017-01-09] MEDS: Ertapenem Inj 1,000 MG in 0.9% Sodium Chloride 50 ML IV SCH (15:32)
--- NOTE | 2017-01-09 16:24 | NUR ---
Social Work: Screening D: EMR reviewed. Pt is a 46 y/o male admitted for cellulitis and myosistis per H&P. Pt's insurance is [email or web address] and PCP is Dr. Ram at [facility] in [place]. Pt's mother is listed as NOK and pt gave verbal consent to contact mother for discharge planning (Kimberley Blunt [phone]). Pt has hx at [facility] for IVDU Heroin. Pt is not willing to return. MARIANNA received MD order for CDP. SW met with pt and pt is willing to see CDP for assessment. Pt signed KIMMY. SW contacted CDP and gave CDP completed KIMMY. CDP confirmed she will see pt today. Pt states he will return home with his mother via POV in [place] when he is medically stable - if pt is not connected with services via CDP. SW will continue to follow and await CDP progress notes to determine safe discharge plan. A: Pt for whom a CDP consult has been ordered by P: CDP to see pt today and report to SW with progress note. Pt's mother will provide transport via POV back to [place] when pt is medically stable for discharge. SW will continue to follow and await CDP progress notes to determine safe discharge plan. SLOANE Mcneal
[2017-01-09] MEDS: DAPTOmycin Inj 400 MG in 0.9% Sodium Chloride 50 ML IV SCH (16:38)
[2017-01-10 01:48] VITALS: BP 104/66; PULSE 87; RESP 16; O2SAT 98
--- NOTE | 2017-01-10 05:40 | NUR ---
Dressing LUE Kerlix in place over I&D site; moderate serous drainage noted at approx. 0000, site reinforced with additional roll of Kerlix. No new drainage noted this AM. Pt reports pain at approx. 6 at HS, Tramadol administered with slight relief and plan made for additional pain medication at approx. 2330. Upon assessment at that time, pt reported pain at 5/10, Percocet administered, and pt resting throughout rest of shift with no further complaints. VSS. No telemetry.
[2017-01-10 05:46] VITALS: BP 106/66; PULSE 72; RESP 16; O2SAT 97
[2017-01-10] MEDS: oxyCODONE-Acetamin 5-325 mg Tablet PO PRN ×2 (08:41→17:11)
[2017-01-10] MEDS: Mupirocin 2% 22 Gm Ointment NASAL SCH ×2 (08:41→22:48)
[2017-01-10] MEDS: Heparin 5,000 Unit/mL Inj SUBQ SCH ×2 (08:41→17:07)
--- NOTE | 2017-01-10 10:24 | PCM.PNSURG ---
Subjective Visit Information: Reason for Visit Cellulitis, Myosistis Surgery/Surgery Date I & D L ARM 01/09/17 Post-Op Day # Date of Admission: Jan 07, 2017 at 03:09 Hospital Day # Subjective: 46 year old male IVDU with abscess of the left biceps s/p I&D on 01/09/2017. Patient reports that his arm hurts less today than pre-operatively. He denies fevers or chills. Tolerating diet. Minimal complaints overall. Objective Vital Sign- Last 8 Hours Date Time Temp Pulse Resp B/P Pulse Ox O2 Delivery O2 Flow Rate FiO2 01/10/17 05:46 36.9 72 16 106/66 97 Room Air Intake and Output- Last 8 Hour 01/10/17 Cumulative From/Thru 07:00 01/06/17 17:32 - 01/10/17 06:45 Intake Total 696 ml 20503 ml Output Total 800 ml 8600 ml Balance -104 ml 2052 ml Intake Oral 586 ml 5886 ml IV Total 110 ml 4766 ml Output Urine Total 800 ml 8600 ml # Bowel Movements 1 General: Alert, Cooperative, No Acute Distress Neck: Supple, Full Range of Motion Lungs: Normal Air Movement Heart: Exam Unremarkable SURGICAL WOUND : Wound Location/Description Erythema, induration, and tenderness of left biceps area is improved from yesterday, but persists. Surgical incision and counter incision unpacked. Looped kimo remains. Wound is clean based without purulent discharge. Probed with cotton tip without identifiable tracking or fluctuance. Result Diagram: 01/09/17 0513 01/09/17 0513 Assessment & Plan Impression 46M IVDU with left arm abscess s/p I&D on 01/10/17. Problems: Plan Continue BID wet to dry dressing changes Wound looks clean based, no purulence - does not need additional I&D at this time Agree with ongoing IV antibiosis Rest of care per primary medical team Please do not hesitate to call with questions or concerns. VTE Prophylaxis: Sub-Q Heparin (Unfractionated) Resuscitation Status: CPR: Attempt Resuscitation Freeman Colon MD Jan 10, 2017 10:24
[2017-01-10 11:45] VITALS: BP 114/71; PULSE 68; RESP 16; O2SAT 97
--- NOTE | 2017-01-10 12:34 | NUR ---
Social Work: Readiness for Discharge/Laboratory Technician D: EMR reviewed. Pt is on day 3 of hospitalization. Per MD in AM multi-disciplinary rounds, pt will potentially discharge today pending review from OR. SW received MD order for CDP and met with pt who agreed to see CDP and signed KIMMY 01/09. Per CDP progress note, CDP met with pt and explained role. Pt stated he is going back to [place] to access treatment. CDP asked pt if he would like a referral or resources for another inpt program (pt recently left [facility] 3 weeks ago in the middle of inpt treatment). Pt declined referral for inpt services but accepted CD resources for outpt services. Pt to discharge home to [place] via POV with mother when medically stable. MARIANNA screened pt's EMR and worked with medical team in AM multi-disciplinary rounds to determine pt does not have any SW discharge needs at this time. SW does not anticipate any needs at time of discharge but will continue to follow if needs arise A: Pt who is independent at baseline P: Pt to discharge home to [place] via POV with mother when medically stable. MARIANNA screened pt's EMR and worked with medical team in AM multi-disciplinary rounds to determine pt does not have any SW discharge needs at this time. MARIANNA does not anticipate any needs at time of discharge but will continue to follow if needs arise. SLOANE Mcneal
--- NOTE | 2017-01-10 13:57 | PCM.PNMED ---
Subjective Date of Service Jan 10, 2017 Subjective He is seen today to follow-up his heroin addiction and left arm abscess. General surgery is following him and no further procedures are planned. The cultures so far have not shown a target organism. Exam Vital Signs Vital Sign - Last Date Time Temp Pulse Resp B/P Pulse Ox O2 Delivery O2 Flow Rate FiO2 01/10/17 05:46 36.9 72 16 106/66 97 Room Air 01/09/17 11:26 2 Intake and Output 01/09/17 01/09/17 01/10/17 Cumulative From/Thru 15:00 23:00 07:00 01/06/17 17:32 - 01/10/17 06:45 Intake Total 381 ml 1753 ml 696 ml 58457 ml Output Total 1200 ml 800 ml 8600 ml Balance 381 ml 553 ml -104 ml 2052 ml Intake Oral 1636 ml 586 ml 5886 ml IV Total 381 ml 117 ml 110 ml 4766 ml Output Urine Total 1200 ml 800 ml 8600 ml # Bowel Movements 0 1 Exam He is alert and oriented in no apparent distress Heart is regular rate and rhythm without murmur Lungs are clear to auscultation bilaterally Extremities have no ankle edema. There is a large bulky dressing over the upper left arm which I did not take down. IVs and Medications Medications Reviewed: Medications were reviewed in detail Lab and Diagnostics Result Diagram: 01/09/1751201/09/17512 X-Rays, CTs and MRIs LEFT UPPER EXTREMITY VENOUS ULTRASOUND: CONCLUSION: Negative for DVT. Hematoma within the distal biceps muscle. Additional hypoechoic focus within the distal biceps, most likely hemorrhage with abscess felt less likely but not excluded. Transmitted to the ED at 23:02 by David Morales M.D CT LEFT ARM: Infection cellulitis with edema in muscle belly. No accrete abscess formation yet. Looks like fluid collection. Assessment & Plan 46 year old male with h/o intravenous drug abuse found to have left upper extremity swelling consistent with muscle abscess acute, active cellultis/myositis on Left upper arm, in the setting of IV/IM heroin use, POA, CT/US showed no fluid but inflammatory phlegmon/developing abscess. -started on vancomycin and zosyn, currently Daptomycin and Rocephin, appreciate ID input chronic, stable, Heroin abuse, no signs of withdrawals, will try to avoid opioid, ordered CDI assessment Diet: General DVT ppx: Heparin dispo: home tomorrow pending ID/culture results/antibiotic needs GI Prophylaxis: Proton Pump Inhibitor VTE Prophylaxis: Sub-Q Heparin (Unfractionated) VTE Mechanical Devices: Intermittant Pneumatic CD Resuscitation Status: CPR: Attempt Resuscitation Gus Maldonado MD Jan 10, 2017 10:07
[2017-01-10] MEDS ORDERED: 0.9% Sodium Chloride 250 ML ONE (15:31)
[2017-01-10] MEDS: Ertapenem Inj 1,000 MG in 0.9% Sodium Chloride 50 ML IV SCH (15:33)
[2017-01-10 16:23] VITALS: BP 108/70; PULSE 77; RESP 16; O2SAT 97
[2017-01-10] MEDS: DAPTOmycin Inj 400 MG in 0.9% Sodium Chloride 50 ML IV SCH (17:05)
--- NOTE | 2017-01-10 17:46 | NUR ---
Dressing change Dressing repacked with saline soaked kerlix per surgeon following their assessment. IV infiltrated this afternoon while infusing ABX. Right hand slightly puffy and tender, warm pack placed on hand and IV therapy called due to limited IV sites available and noted difficulty of starting IVs on this pt. Cardiac: Pt denies CP, no tele Resp: Pt denies SOB, SPO2 mid 90s on RA GI/: Pt denies N/V/D/C Neuro: A&Ox3, SRINIVASAN. Pain is well controlled with oral pain meds.
[2017-01-10 20:42] VITALS: BP 117/72; PULSE 79; RESP 16; O2SAT 95
[2017-01-11 00:15] VITALS: BP 98/58; PULSE 71; RESP 16; O2SAT 98
[2017-01-11] MEDS: Heparin 5,000 Unit/mL Inj SUBQ SCH ×3 (00:30→16:34)
--- NOTE | 2017-01-11 03:37 | NUR ---
CV/PAIN; iv restarted by ivt for antibiotics. No request for pain rx. Dressing intact. Slept alot this shift.
[2017-01-11 04:50] VITALS: BP 98/58; PULSE 62; RESP 16; O2SAT 98
[2017-01-11] MEDS: oxyCODONE-Acetamin 5-325 mg Tablet PO PRN ×3 (06:58→20:08)
[2017-01-11 07:16] LABS: BASOPHILS % (AUTO) 0.7 % (0-3); EOSINOPHILS % (AUTO) 12.9 % (0-5); MONOCYTES % (AUTO) 7.1 % (4-12); Mean Corpuscular Hemoglobin 28.2 pg (27.0-35.0); Mean Corpuscular Volume 83.4 fL (81-100); NEUTROPHILS % (AUTO) 59.8 % (40-74)
--- NOTE | 2017-01-11 08:02 | PCM.PNSURG ---
Subjective Visit Information: Reason for Visit Cellulitis, Myosistis Surgery/Surgery Date I & D L ARM 01/09/17 Post-Op Day # Date of Admission: Jan 07, 2017 at 03:09 Hospital Day # Subjective: Stable overnight. Biceps able to extend further, erythema decreasing, no purulence on exam. Objective Vital Sign- Last 8 Hours Date Time Temp Pulse Resp B/P Pulse Ox O2 Delivery O2 Flow Rate FiO2 01/11/17 04:50 36.5 62 16 98/58 98 Room Air 01/11/17 00:15 36.8 71 16 98/58 98 Room Air Intake and Output- Last 8 Hour 01/11/17 Cumulative From/Thru 07:00 01/06/17 17:32 - 01/11/17 05:18 Intake Total 880 ml 73241 ml Output Total 1700 ml 43747 ml Balance -820 ml 172 ml Intake Oral 880 ml 7306 ml IV Total 4916 ml Output Urine Total 1700 ml 02403 ml # Bowel Movements 1 General: Alert, Oriented X3, Cooperative, No Acute Distress Extremities: Other (LUE with mild erythema, improved. kimo in place. Wound bed is clean.) Result Diagram: 01/09/17 0513 01/09/17 0513 Assessment & Plan Impression POD2 I&D L biceps abscess Problems: Plan Wound care--pack BID with WTD Antibiotics per primary team OK to discharge when primary team feels he is ready f/u in wound clinic [place] removal in 2 weeks after surgery. VTE Prophylaxis: Sub-Q Heparin (Unfractionated) Resuscitation Status: CPR: Attempt Resuscitation Beatriz Gil MD Jan 11, 2017 08:02
[2017-01-11] MEDS: Mupirocin 2% 22 Gm Ointment NASAL SCH ×2 (08:56→20:07)
--- NOTE | 2017-01-11 10:28 | PCM.PNMED ---
Subjective Date of Service Jan 11, 2017 Subjective pt remained afebrile, tolerated I&D well. pain is controlled, gram pos cocci is growing from culture, Exam Vital Signs Vital Sign - Last Date Time Temp Pulse Resp B/P Pulse Ox O2 Delivery O2 Flow Rate FiO2 01/11/17 04:50 36.5 62 16 98/58 98 Room Air 01/09/17 11:26 2 Intake and Output 01/10/17 01/10/17 01/11/17 Cumulative From/Thru 15:00 23:00 07:00 01/06/17 17:32 - 01/11/17 05:18 Intake Total 690 ml 880 ml 44010 ml Output Total 1750 ml 1700 ml 74721 ml Balance -1060 ml -820 ml 172 ml Intake Oral 540 ml 880 ml 7306 ml IV Total 150 ml 4916 ml Output Urine Total 1750 ml 1700 ml 43762 ml # Bowel Movements 1 Exam NAD, comfortably laying down on the bed no JVD, MMM, no LAD RRR, nl s1, s2 no mrg CTAB, no w,c S,ND,NT,normoactive BS+ warm, no edema, pulses 2/2 Left biceps s/p dressed IVs and Medications Medications Reviewed: Medications were reviewed in detail Lab and Diagnostics Result Diagram: 01/11/17 0708 01/09/17 0513 X-Rays, CTs and MRIs LEFT UPPER EXTREMITY VENOUS ULTRASOUND: CONCLUSION: Negative for DVT. Hematoma within the distal biceps muscle. Additional hypoechoic focus within the distal biceps, most likely hemorrhage with abscess felt less likely but not excluded. Transmitted to the ED at 23:02 by David Morales M.D CT LEFT ARM: Infection cellulitis with edema in muscle belly. No accrete abscess formation yet. Looks like fluid collection. Assessment & Plan 46 year old male with h/o intravenous drug abuse found to have left upper extremity swelling consistent with muscle abscess acute, active cellultis/myositis on Left upper arm, in the setting of IV/IM heroin use, POA, CT/US showed no fluid but inflammatory phlegmon/developing abscess. pt underwent I&D on 01/09 by , tolerated well. -started on vancomycin and zosyn, currently Daptomycin and Rocephin, appreciate ID input -awaits wound culture, -continue management per wound care service, FU with wound care center per , surgically no further recs. chronic, stable, Heroin abuse, no signs of withdrawals, will try to avoid opioid, offered CDI assessment Diet: General DVT ppx: Heparin dispo:in 1-2days, awaits culture result GI Prophylaxis: Proton Pump Inhibitor VTE Prophylaxis: Sub-Q Heparin (Unfractionated) VTE Mechanical Devices: Intermittant Pneumatic CD Resuscitation Status: CPR: Attempt Resuscitation Time spent 35min Michelle Paul MD Jan 11, 2017 10:28
[2017-01-11] MEDS ORDERED: Oritavancin Diphosphate 400 mg Vial IV ONE (10:45)
[2017-01-11] MEDS ORDERED: Oritavancin Diphosphate 1,200 MG in Dextrose 5% 500 ML IV ONE (11:10)
--- NOTE | 2017-01-11 11:32 | PROG NOTE ---
[address] [address] PROGRESS NOTE PATIENT: SHAYY MOORE : 1970 MR#: [id number] ADMIT: 01/07/2017 JOB ID: [id number] DATE: 01/11/2017 REASON FOR FOLLOWUP: Infectious pyomyositis left biceps secondary to intramuscular drug use. INTERVAL HISTORY: The patient underwent incision and drainage over the weekend by Dr. Gil. She found a 3 x 2 cm deep muscle abscess, which she drained in total. Since then, the patient is much improved. He reports increasing range of motion in his arm. No fevers. No chills. No sweats. No systemic complaints at all. PHYSICAL EXAMINATION: Reveals a comfortable gentleman. He has been afebrile really since admission, which is now six days ago. His temperature 36.5, blood pressure 98/58, saturating very well on room air. He is awake and alert. Lungs are clear. Cardiac tones normal. Abdomen benign. His left arm was recently re-dressed, so I do not change it again as it was just done an hour ago, but the wound is dramatically improved. Patient now has about 120 degree range of motion of his biceps as opposed at 90 degrees or less when he came in. He reports he is feeling well enough to go home. LABORATORIES: Include white blood count 5800 dramatically down from 12 to 15,000 ever since admission. Platelet count 335. The diff on the white count has also normalized. No recent chemistries are available, nor are any needed. Hep B, hep C, HIV streptozyme all negative. Micro studies: The wound is growing a Staph which is latex positive and therefore almost certainly Staph aureus. No susceptibilities until tomorrow. Recall that his MRSA screen by PCR of the nares was undetected and the PCR was positive and was therefore considered a cassette variant strain. IMPRESSION: This is a gentleman with a left biceps pyomyositis secondary to injection drug use. This has now been surgically cleaned, and the patient is surgically debrided. The patient is now much improved. The optimal management of Staphylococcus pyomyositis usually involves 2-4 weeks of aggressive therapy unless the patient is bacteremic in which case 4 weeks is required. This patient is not bacteremic and is completely nontoxic, so I think at 2-1/2 to 3 weeks of therapy would be adequate. He has already had five days here, and so giving him oritavancin will be an attractive proposition as this will last for two more weeks therefore giving him almost three total weeks of therapy for this process. RECOMMENDATIONS: 1. We can discontinue all other IV therapies. 2. Oritavancin 1.2 g x1 will be given to complete his antibiotic therapy. 3. The patient will need wound care follow up. Note that he is going to be returning to his residence in [facility], so will need to arrange for wound care in the [facility] before he leaves here as he does have a significant wound that will require close followup. 4. Infectious Disease will sign off at this time.
--- NOTE | 2017-01-11 13:50 | NUR ---
Pain / Anxiety Pt reported pain at 6/10 in his left upper arm. Administered 1 Percoset. Pt also asked for something for anxiety. He said he is worried about being discharged tomorrow. Pt did not elaborate. Currently no anti-anxiety medications on his EMAR. Sent Cook page to hospitalist to request Ativan. Awaiting new order.
[2017-01-11 15:12] VITALS: BP 112/71; PULSE 80; RESP 16; O2SAT 99
--- NOTE | 2017-01-11 16:39 | NUR ---
Wound Note Patient seen at bedside for wound care and dressing change. Pleasant withdrawing 46 yo IVDU male, recent I&D of left bicep abscess by Dr Gil. Left bicep wound measures 5 cm L x 4 cm W x 2 cm D, wound bed is clean without tunneling, tracking or undermining, tissue is indurated significantly at medial upper arm and pretty much the whole bicep, pt unable to achieve full elbow extension lacking about 20 degrees, lots of muscle guarding with PROM into extension. Palpable lymph nodes at axilla, no lymphatic streaking noted. Cleaned wound with saline and gauze, packed with sterile saline moist 4x4 gauze wrapped with kerlix, surgilast and sonal wrap for gentle compression, arm elevated on 3 pillows, recommended he avoid dependent position for a few days and to work on active extension of his forearm to avoid stiffness and or loss of ROM. Tolerated treatment well. Addendum: 01/11/17 at 1702 by DAVID REID Failed to mention that there is a kimo drain running between large bicep wound and smaller egress incision medial to large wound.
[2017-01-11 19:30] VITALS: BP 128/88; PULSE 77; RESP 16; O2SAT 97
[2017-01-12] MEDS: Heparin 5,000 Unit/mL Inj SUBQ SCH ×2 (00:31→10:37)
[2017-01-12] MEDS: oxyCODONE-Acetamin 5-325 mg Tablet PO PRN ×2 (02:38→10:55)
[2017-01-12 06:05] VITALS: BP 110/66; PULSE 59; RESP 16; O2SAT 96
[2017-01-12] MEDS ORDERED: TRAM-14 PO (09:25)
--- NOTE | 2017-01-12 09:25 | PCM.DIMED ---
Discharge Instructions Date of Service Jan 12, 2017 Dates of Hospitalization Jan 07, 2017 at 03:09 Discharge Diagnosis Discharge Diagnosis left upper arm abscess secondary to IM heroin abuse Diet Discharge Diet: No restrictions Activity Discharge Activity: No restrictions Call your provider Call your provider for: Fever or Chills, Other (worsening pain and tightness on left arm) Patient Instructions Patient Instructions You were hospitalized with abscess in your left upper arm, you underwent drainage procedure well, You were treated antibiotics appropriately. Please note that you had discussion of using drugs, you will likely develop similar problem in the future you keep using IV/IM drugs, please follow up with resources we provided. Please follow up with your doctor in 2weeks Please follow up with Wound care Center for dressing Please follow up with Dr.Porter burks in 2weeks for Bc removal Follow-up Provider: Beatriz Gil MD Follow-up with PCP in: 2 weeks Provider: DAKOTA BURKS,WOUND Follow-up in: 1 week Michelle Paul MD Jan 12, 2017 09:25
[2017-01-12] MEDS: Mupirocin 2% 22 Gm Ointment NASAL SCH (10:39)
[2017-01-12 10:41] VITALS: BP 116/71; PULSE 73; RESP 16; O2SAT 98
--- NOTE | 2017-01-12 10:55 | NUR ---
Social Work- Discharge Data: EMR reviewed. Pt is on day 5 of hospitalization for cellulutis, myosistis per H&P. Pt is medically stable to discharge today, discharge orders are active. MARIANNA met with pt at bedside regarding discharge plan. Pt confirmed that his mother will pick him up and transport him to [place]. SW confirmed with pt that he will have to obtain his belongings and check out at [facility] independently. This will not be done by [facility]. Pt aware of this. Pt confirmed his mother will take him to obtain his belongings. Pt states that he is going to look into suboxone and CD programs locally in [place]. CDP has met with pt and provided resources. Per ID notes, pt will require outpt wound clinic follow up in one week. As pt is moving to [place], pt states that he is not able to come to for Wound Care. Pt requested coordination of wound care at [facility] in [place]. MARIANNA spoke with [facility] who contacted [facility] and provided the contact information in patient's discharge instructions. [facility] reports she requested return call from [facility] tomorrow (as they are closed for the iday) and she will reach out to pt tomorrow when information is known. Pt agreeable to discharge plan. No additional discharge needs identified. Pt to discharge home with his mother to transport via POV. Assessment: Pt who is independent at baseline and requires outpt wound center follow up. Plan: [facility] to call pt with [facility] [place], [place], [place] appointment information when it is known, likely tomorrow. No additional discharge needs identified. Pt to discharge home with his mother to transport via POV. SLOANE Landa
--- NOTE | 2017-01-12 11:12 | PCM.DC.MED ---
Discharge Summary Date of Service Jan 12, 2017 Dates of Hospitalization Date of Hospital Admission Jan 07, 2017 at 03:09 Date of Discharge: Jan 12, 2017 Providers: Admitting Physician: Michelle Matute MD Primary Care Physician: Other,Physician Attending Physician: Michelle Matute MD Diagnosis at Time of Discharge Diagnosis at Time of Discharge left upper arm abscess secondary to IM heroin abuse Consultations Infectious disease Gen. surgery Procedures XRay, CTs & MRIs LEFT UPPER EXTREMITY VENOUS ULTRASOUND: CONCLUSION: Negative for DVT. Hematoma within the distal biceps muscle. Additional hypoechoic focus within the distal biceps, most likely hemorrhage with abscess felt less likely but not excluded. Transmitted to the ED at 23:02 by [address] M[address]D [address] LEFT ARM: Infection cellulitis with edema in muscle belly. No accrete abscess formation yet. Looks like fluid collection. Brief History HPI obtained by on 01/07 46 year old male with a history of HTN presented to the ED requesting for detox from heroin for the past 3 weeks. He also c/o associated suicidal thoughts without plans onset 2 weeks ago and insomnia along with nausea and vomiting. He denies blood in vomiting. He denies current hallucinations and homicidal thoughts. He also states that he has been at [facility] for 1 week, and that he plans on getting into a Suboxone clinic once he is discharged. He denies a history of suicidal attempts, mellisa, psychosis, and reports that he has not been admitted previously for mental health issues. In ED, he was found to have left upper extremity swelling that was consistent with cellulitis. So he is admitted for intravenous antibiotics. Hospital Course 46 year old male with h/o intravenous drug abuse found to have left upper extremity swelling consistent with muscle abscess acute dx cellultis/pyomyositis on Left biceps in the setting of IV/IM heroin use, CT/US showed no fluid but inflammatory phlegmon/developing abscess. pt underwent I&D on 01/09 by ,pt was initially started on vancomycin and zosyn, changed to Daptomycin and Rocephin. Prelim culture showed staph Aureus. Given no systemic signs of infection, stable clinical conidition, drug abuse, patient received one dose of Dalbavancin for final tx. patient will follow up with [facility], and clinic in 2weeks. Given his homelessness, patient is discharged to his mother's place. chronic dx Heroin abuse, no signs of withdrawals, offered chemical dependence resources to follow up after d/c, Tramadol was given for pain control upon d/c. Exam Vital Signs (Last) Date Time Temp Pulse Resp B/P Pulse Ox O2 Delivery O2 Flow Rate FiO2 01/12/17 10:41 36.7 73 16 116/71 98 Room Air 01/09/17 11:26 2 Exam NAD, comfortably laying down on the bed no JVD, MMM, no LAD RRR, nl s1, s2 no mrg CTAB, no w,c S,ND,NT,normoactive BS+ warm, no edema, pulses 2/2 Left biceps s/p dressed Test 01/06/17 23:45 01/07/17 05:00 01/08/17 05:04 01/09/17 05:13 Lactic Acid Level 1.3mmol/L (0.4-2.0) Total Creatine Kinase 35U/L (21-232) Procalcitonin 0.04ng/mL (0.00-0.08) Hepatitis A IgM Antibody Negative (Negative) Hepatitis B Surface Antigen Negative (Negative) Hepatitis B Core IgM Antibody Negative (Negative) Hepatitis C Antibody <0.1s/co ratio (0.0-0.9) Hepatitis C Comment Comment (.) HIV (1&2) Ag and Ab, 4th Generation Non reactive (Non Reactive) Streptozyme 32.0IU/mL (0.0-200.0) Sodium Level 133mEq/L (134-144) Potassium Level 4.4mEq/L (3.5-5.2) Chloride Level 95mEq/L (97-108) Carbon Dioxide Level 21mmol/L (18-29) Blood Urea Nitrogen 11mg/dL (6-24) Creatinine 0.54mg/dL (0.76-1.27) Estimat Glomerular Filtration Rate 173mL/min (>59) Glucose Level 88mg/dL (60-99) Calcium Level 9.6mg/dL (8.5-10.1) Phosphorus Level 4.1mg/dL (2.5-4.9) Magnesium Level 2.0mg/dL (1.6-2.6) Total Bilirubin 0.3mg/dL (0.0-1.2) Aspartate Amino Transf (AST/SGOT) 45U/L (0-50) Alanine Aminotransferase (ALT/SGPT) 68U/L (0-44) Alkaline Phosphatase 86U/L (25-150) Total Protein 7.0g/dL (6.4-8.4) Albumin 3.0g/dL (3.4-5.0) Test 01/11/17 07:08 White Blood Count 5.8th/mm3 (3.8-10.1) Red Blood Count 4.76mil/mm3 (4.40-5.80) Hemoglobin 13.4g/dL (13.8-17.2) Hematocrit 39.7% (41.0-50.0) Mean Corpuscular Volume 83.4fL (81-100) Mean Corpuscular Hemoglobin 28.2pg (27.0-35.0) Mean Corpuscular Hemoglobin Concent 33.8% (32.0-37.0) Red Cell Distribution Width 16.3% (12.3-15.4) Platelet Count simba/L (150-400) Neutrophils (%) (Auto) 59.8% (40-74) Lymphocytes (%) (Auto) 17.6% (14-46) Monocytes (%) (Auto) 7.1% (4-12) Eosinophils (%) (Auto) 12.9% (0-5) Basophils (%) (Auto) 0.7% (0-3) Discharge Medications As needed Tramadol (Ultram) 50 Mg Tablet 100 MG PO TID PRN PRN For Mild Pain Prescribed by: MICHELLE MATUTE MD Followup Plan Disposition: home Discharge Diet: No restrictions Discharge Activity: No restrictions Patient Instructions You were hospitalized with abscess in your left upper arm, you underwent drainage procedure well, You were treated antibiotics appropriately. Please note that you had discussion of using drugs, you will likely develop similar problem in the future you keep using IV/IM drugs, please follow up with resources we provided. Please follow up with your doctor in 2weeks Please follow up with Wound care Center for dressing Please follow up with Dr.Porter burks in 2weeks for Bc removal Follow-up Provider: Beatriz Gil MD Follow-up with PCP in: 2 weeks Provider: DAKOTA BURKS,WOUND Follow-up in: 1 week Time spent 65min Michelle Matute MD Jan 12, 2017 11:12
--- NOTE | 2017-01-12 12:13 | NUR ---
Discharge Pt to discharge to home with his mom; 1 IV access discontinued, VSS, A&Ox3, new dressing to L arm before discharge. Pt given written and verbal instructions for discharge to which he states understanding. Pt encouraged to discontinue IV/IM drug use, to f/u with his PCP in 2 weeks, follow up with wound care for dressing and to f/u with Dr Gil in 2 weeks for kimo removal. Pt given number to wound care center in [place] . All personal belongings with patient at time of discharge. Ambulated with RN at time of discharge.
== END 2017-01-12 12:35 | disposition home or self-care (01) | DRG 501 ==
LOC: SED 17:01 → OSC 01-07 03:09
PROVIDERS: ADMIT Internal Medicine; ATTEND Internal Medicine
PROC: 0K9800Z Drainage of Left Upper Arm Muscle with Drainage Device, Open Approach (ICD-10-PCS; principal; 2017-01-09 10:00)
DX: M60.001 Infective myositis, unspecified left arm (principal); F11.20 Opioid dependence, uncomplicated; B95.61 Methicillin susceptible Staphylococcus aureus infection as the cause of diseases classified elsewhere; Z86.14 Personal history of Methicillin resistant Staphylococcus aureus infection; F17.210 Nicotine dependence, cigarettes, uncomplicated